=== PATIENT | female | born 2000 | race Asian ===

== ENCOUNTER 2022-09-14 02:22 | Emergency (ER) | payer OTHER ==
[~2022-09-14] VITALS: Ht 157.5 cm; Wt 68.9 kg
[2022-09-14 02:56] LABS: PLATELET COUNT 191 K/uL (152-353)
[2022-09-14 03:07] LABS: POTASSIUM 3.6 mmol/L (3.6-5.2); SODIUM 138 mmol/L (136-145)
== END 2022-09-14 03:25 | disposition home or self-care (01) ==
LOC: ED 02:22
PROVIDERS: Family Medicine
DX: Z3A.20 20 weeks gestation of pregnancy (principal); R14.3 Flatulence; R10.13 Epigastric pain; K59.09 Other constipation
CPT/HCPCS: 36415; 80053; 80307; 81002; 82150; 83690; 84484; 85027; 93005; 96372; 99284; J1885

== ENCOUNTER 2022-12-08 16:55 | Emergency (ER) | payer OTHER | END 2022-12-08 17:00 | disposition left against medical advice (07) | LOC: ED 16:55 | DX: Z53.21 Procedure and treatment not carried out due to patient leaving prior to being seen by health care provider (principal) ==